=== PATIENT | female | born 1985 | race African-American/Black ===

== ENCOUNTER 2021-11-11 01:30 | Emergency (ER) | payer MEDICAID ==
[~2021-11-11] VITALS: Ht 175.3 cm; Wt 77.1 kg
[2021-11-11 04:00] VITALS: BP 112/75
== END 2021-11-11 04:00 | disposition home or self-care (01) ==
LOC: ER 01:30
DX: F41.9 Anxiety disorder, unspecified (principal); Z88.0 Allergy status to penicillin
CPT/HCPCS: 99283

== ENCOUNTER 2024-09-14 10:21 | Emergency (ER) | payer MEDICAID ==
[~2024-09-14] VITALS: Ht 175.3 cm; Wt 86.0 kg
[2024-09-14 10:35] VITALS: O2SAT 99
[2024-09-14 11:09] LABS: CLARITY URINE CLEAR (CLEAR); COLOR URINE YELLOW (YELLOW); GLUCOSE URINE NEGATIVE (NEGATIVE); KETONES URINE NEGATIVE (NEGATIVE); LEUKOCYTE ESTERASE URINE 1+ (NEGATIVE); NITRITE URINE NEGATIVE (NEGATIVE); OCCULT BLOOD URINE NEGATIVE (NEGATIVE); PH URINE 6.5 (4.5-8.0); PROTEIN URINE NEGATIVE (NEGATIVE); SPECIFIC GRAVITY URINE 1.029 (1.005-1.030)
[2024-09-14] MEDS ORDERED: FLUC100T MT (11:25)
[2024-09-14] MEDS ORDERED: METR-167 MT (11:25)
[2024-09-14] MEDS ORDERED: AZITHROMYCIN 250 MG TABLET PO SCH (11:30)
[2024-09-14 11:38] LABS: BACTERIA URINE TRACE; MUCUS URINE TRACE /lpf (< = 2+); SQUAMOUS EPITHELIAL CELL URINE 1+ /lpf (RARE/1+)
[2024-09-14 11:39] LABS: RBC URINE 0-2 /hpf (0-2); WBC URINE 0-2 /hpf (0-2)
[2024-09-14] MEDS: AZITHROMYCIN 500 MG TABLET PO NR (11:59)
[2024-09-14] MEDS: METRONIDAZOLE 500MG TABLET PO ONE (11:59)
[2024-09-14] MEDS: FLUCONAZOLE 100MG TABLET PO ONE (12:04)
[2024-09-14] MEDS: CEFTRIAXONE SODIUM 500MG VIAL IM ONE (12:06)
[2024-09-14 12:10] VITALS: BP 124/80; PULSE 80; RESP 16; TEMP 37; O2SAT 99
== END 2024-09-14 12:17 | disposition home or self-care (01) ==
LOC: ER 10:21
DX: B37.31 Acute candidiasis of vulva and vagina (principal); N39.0 Urinary tract infection, site not specified; F41.9 Anxiety disorder, unspecified; Z11.3 Encounter for screening for infections with a predominantly sexual mode of transmission; Z88.0 Allergy status to penicillin
CPT/HCPCS: 99284; 81003; 96372; J0696